=== PATIENT | female | born 1935 | race Caucasian/White ===

== ENCOUNTER 2018-11-11 11:15 | Emergency (ER) | payer MEDICARE ==
--- NOTE | 2018-11-11 12:12 | RAD ---
RIGHT HIP 2 VIEWS: Date: 11/11/18 HISTORY: Fall. Right hip pain. COMPARISON: None. FINDINGS: No acute displaced fracture or malalignment. Right SI joint and pubic symphysis are unremarkable. No femoral neck fracture. No intertrochanteric fracture. IMPRESSION: No acute abnormality. POS: [facility]
--- NOTE | 2018-11-11 12:18 | RAD ---
FRONTAL VIEW PELVIS: INDICATIONS: Fall with right pelvic pain. FINDINGS: No evidence of fracture or dislocation. The sacrum is partially obscured by overlying bowel content, limiting assessment. Scattered degenerative change is present. IMPRESSION: No discrete fracture. If there is a high level of clinical suspicion and inability to bear weight, consider followup with c ross-sectional imaging for further evaluation. POS: [facility]
== END 2018-11-11 12:37 | disposition home or self-care (01) ==
LOC: MADERS 11:15
DX: S60.511A Abrasion of right hand, initial encounter (principal); M25.551 Pain in right hip; E03.9 Hypothyroidism, unspecified; Z79.899 Other long term (current) drug therapy; W19.XXXA Unspecified fall, initial encounter
CPT/HCPCS: 72170

== ENCOUNTER 2022-09-16 16:12 | Emergency (ER) | payer MEDICARE ==
[2022-09-16] MEDS ORDERED: Morphine 2 MG/ML VIAL ONE (16:32)
[2022-09-16] MEDS ORDERED: Ondansetron PF 4 MG/2 ML Vial ONE (16:32)
[2022-09-16 16:41] LABS: #Basophils 0.1 thou/uL (0.0-0.2); #Eosinphils 0.1 thou/uL (0.0-0.7); #Lymphocytes 1.2 thou/uL (1.20-3.40); #Monocytes 0.5 thou/uL (0.11-0.59); #Neutrophils 3.2 thou/uL (1.40-6.50); %Basophils 1.6 % (0.0-1.0); %Eosinophils 1.7 % (0.0-10.0); %Monocytes 10.2 % (0.0-10.0); %Neutrophils 62.5 % (42.0-75.0); Hemoglobin 12.6 g/dL (12.0-16.0); Mean Corpuscular HGB CONC 32.8 g/dL (32.0-36.0); Mean Corpuscular Hemoglobin 30.7 pg (27.0-31.0); Mean Corpuscular Volume 93.6 fl (78.0-98.0); Mean Platelet Volume 7.1 fL (7.4-10.4); Platelet Count 247 thou/uL (130-400); RBC Distribution Width 12.2 % (11.5-14.5); Red Blood Cell (RBC) Count 4.11 mill/uL (4.20-5.40); White Blood Cell (WBC) Count 5.1 thou/uL (4.8-10.8)
[2022-09-16 16:50] LABS: Prothrombin Time 13.4 sec (12.0-14.7)
[2022-09-16 16:52] LABS: PTT 24.8 sec (22.9-36.1)
[2022-09-16 16:59] LABS: ALT (SGPT) 19 U/L (8-55); AST (SGOT) 26 U/L (5-34); Alkaline Phosphatase 70 U/L (40-110); Anion Gap 14 mmol/L (10-20); BUN (Urea Nitrogen) 21 mg/dL (9.8-20.1); Bilirubin, Total 0.5 mg/dL (0.2-1.2); Calc. Creatinine Clearance 0 mL/min (70-130); Calcium 9.3 mg/dL (7.8-10.44); Carbon Dioxide 29 mmol/L (23-31); Chloride 98 mmol/L (98-107); Estimated GFR 74; Globulin 2.5 g/dL (2.4-3.5); Glucose 116 mg/dL (83-110); Potassium 4.6 mmol/L (3.5-5.1); Protein, Total 6.5 g/dL (5.8-8.1); Sodium 136 mmol/L (136-145)
== END 2022-09-16 20:03 | disposition short-term general hospital (02) ==
LOC: MADERS 16:12
DX: S72.092A Other fracture of head and neck of left femur, initial encounter for closed fracture (principal); E03.9 Hypothyroidism, unspecified; Z79.899 Other long term (current) drug therapy; W07.XXXA Fall from chair, initial encounter
CPT/HCPCS: 80053; 85025; 85610; 85730; 96374; 96375; J2270; J2405

== ENCOUNTER 2022-09-22 13:48 | Inpatient (IN) | payer MEDICARE, OTHER ==
[2022-09-22 14:47] VITALS: BMI 14.2
[2022-09-22] MEDS ORDERED: Senokot S 8.6-50 MG TAB PO PRN (18:16)
[2022-09-22] MEDS ORDERED: Bisacodyl 5 MG TAB PO PRN (18:16)
[2022-09-22] MEDS ORDERED: Ondansetron ODT 4 MG TAB PO PRN (18:16)
[2022-09-22] MEDS ORDERED: traMADol HCl 50 MG TAB PO PRN (18:20)
[2022-09-22] MEDS ORDERED: Acetaminophen 500 MG TAB PO SCH (20:30)
[2022-09-22] MEDS: Aspirin 81 mg Enteric Coated Tablet PO SCH (20:46)
[2022-09-22] MEDS: Ascorbic Acid 500 mg Chewable Tablet PO SCH (20:47)
[2022-09-22] MEDS: Melatonin 3 MG TAB PO SCH (20:55)
[2022-09-22] MEDS: DOXEPIN HCL 10 MG PO SCH (20:56)
[2022-09-23] MEDS: Levothyroxine Sodium 50 MCG TAB PO SCH (05:07)
[2022-09-23] MEDS: Acetaminophen 500 MG TAB PO SCH ×4 (05:07→23:07)
[2022-09-23] MEDS: Lisinopril 5 MG TAB PO SCH (08:48)
[2022-09-23] MEDS: Aspirin 81 mg Enteric Coated Tablet PO SCH ×2 (08:48→20:53)
[2022-09-23] MEDS: Ferrous Sulfate 325 MG TAB PO SCH ×2 (08:48→17:04)
[2022-09-23] MEDS: Ascorbic Acid 500 mg Chewable Tablet PO SCH ×2 (08:48→20:53)
[2022-09-23] MEDS: Nystatin 500,000 UNITS/5 ML UDCUP SSW SCH ×3 (13:56→20:53)
[2022-09-23] MEDS: Melatonin 3 MG TAB PO SCH (20:53)
[2022-09-23] MEDS: DOXEPIN HCL 10 MG PO SCH (20:55)
[2022-09-24] MEDS: Levothyroxine Sodium 50 MCG TAB PO SCH (05:57)
[2022-09-24] MEDS: Acetaminophen 500 MG TAB PO SCH ×4 (05:57→23:32)
[2022-09-24] MEDS: Ferrous Sulfate 325 MG TAB PO SCH ×2 (08:25→17:29)
[2022-09-24] MEDS: Aspirin 81 mg Enteric Coated Tablet PO SCH ×2 (08:25→20:57)
[2022-09-24] MEDS: Ascorbic Acid 500 mg Chewable Tablet PO SCH ×2 (08:25→20:57)
[2022-09-24] MEDS: Lisinopril 5 MG TAB PO SCH (08:25)
[2022-09-24] MEDS: Nystatin 500,000 UNITS/5 ML UDCUP SSW SCH ×4 (08:25→20:57)
[2022-09-24] MEDS: Melatonin 3 MG TAB PO SCH (20:57)
[2022-09-24] MEDS: DOXEPIN HCL 10 MG PO SCH (20:58)
[2022-09-25] MEDS: Levothyroxine Sodium 50 MCG TAB PO SCH (05:18)
[2022-09-25] MEDS: Acetaminophen 500 MG TAB PO SCH ×4 (05:18→23:20)
[2022-09-25] MEDS: Aspirin 81 mg Enteric Coated Tablet PO SCH ×2 (08:09→21:10)
[2022-09-25] MEDS: Ferrous Sulfate 325 MG TAB PO SCH ×2 (08:09→16:53)
[2022-09-25] MEDS: Lisinopril 5 MG TAB PO SCH (08:09)
[2022-09-25] MEDS: Ascorbic Acid 500 mg Chewable Tablet PO SCH ×2 (08:09→21:10)
[2022-09-25] MEDS: Nystatin 500,000 UNITS/5 ML UDCUP SSW SCH ×4 (08:09→21:10)
[2022-09-25] MEDS: Melatonin 3 MG TAB PO SCH (21:10)
[2022-09-25] MEDS: traMADol HCl 50 MG TAB PO PRN (21:10)
[2022-09-25] MEDS: DOXEPIN HCL 10 MG PO SCH (21:12)
[2022-09-26] MEDS: Acetaminophen 500 MG TAB PO SCH ×3 (05:35→17:10)
[2022-09-26] MEDS: Levothyroxine Sodium 50 MCG TAB PO SCH (05:35)
[2022-09-26] MEDS: Nystatin 500,000 UNITS/5 ML UDCUP SSW SCH ×4 (08:18→22:07)
[2022-09-26] MEDS: Ascorbic Acid 500 mg Chewable Tablet PO SCH ×2 (08:18→22:07)
[2022-09-26] MEDS: Ferrous Sulfate 325 MG TAB PO SCH ×2 (08:18→17:10)
[2022-09-26] MEDS: Lisinopril 5 MG TAB PO SCH (08:18)
[2022-09-26] MEDS: Aspirin 81 mg Enteric Coated Tablet PO SCH ×2 (08:18→22:07)
[2022-09-26] MEDS: Melatonin 3 MG TAB PO SCH (22:07)
[2022-09-26] MEDS: DOXEPIN HCL 10 MG PO SCH (22:08)
[2022-09-26] MEDS: traMADol HCl 50 MG TAB PO PRN (22:12)
[2022-09-27] MEDS: Acetaminophen 500 MG TAB PO SCH ×4 (00:52→17:08)
[2022-09-27] MEDS: Levothyroxine Sodium 50 MCG TAB PO SCH (05:18)
[2022-09-27] MEDS: Nystatin 500,000 UNITS/5 ML UDCUP SSW SCH ×4 (08:30→21:35)
[2022-09-27] MEDS: Aspirin 81 mg Enteric Coated Tablet PO SCH ×2 (08:30→21:35)
[2022-09-27] MEDS: Ascorbic Acid 500 mg Chewable Tablet PO SCH ×2 (08:31→21:39)
[2022-09-27] MEDS: Ferrous Sulfate 325 MG TAB PO SCH ×2 (08:31→17:08)
[2022-09-27] MEDS: Lisinopril 5 MG TAB PO SCH (08:31)
[2022-09-27] MEDS: Melatonin 3 MG TAB PO SCH (21:35)
[2022-09-27] MEDS: traMADol HCl 50 MG TAB PO PRN (21:38)
[2022-09-27] MEDS: DOXEPIN HCL 10 MG PO SCH (21:41)
[2022-09-28] MEDS: Acetaminophen 500 MG TAB PO SCH ×5 (00:08→23:53)
[2022-09-28] MEDS: Levothyroxine Sodium 50 MCG TAB PO SCH (05:33)
[2022-09-28] MEDS: Ascorbic Acid 500 mg Chewable Tablet PO SCH ×2 (08:11→21:15)
[2022-09-28] MEDS: Lisinopril 5 MG TAB PO SCH (08:11)
[2022-09-28] MEDS: Ferrous Sulfate 325 MG TAB PO SCH ×2 (08:11→17:08)
[2022-09-28] MEDS: Aspirin 81 mg Enteric Coated Tablet PO SCH ×2 (08:12→21:17)
[2022-09-28] MEDS: Nystatin 500,000 UNITS/5 ML UDCUP SSW SCH ×4 (08:12→21:15)
[2022-09-28] MEDS: traMADol HCl 50 MG TAB PO PRN (21:16)
[2022-09-28] MEDS: Melatonin 3 MG TAB PO SCH (21:16)
[2022-09-28] MEDS: DOXEPIN HCL 10 MG PO SCH (21:18)
[2022-09-29] MEDS: Acetaminophen 500 MG TAB PO SCH ×3 (05:52→17:06)
[2022-09-29] MEDS: Levothyroxine Sodium 50 MCG TAB PO SCH (05:52)
[2022-09-29] MEDS: Ferrous Sulfate 325 MG TAB PO SCH ×2 (07:58→17:06)
[2022-09-29] MEDS: Ascorbic Acid 500 mg Chewable Tablet PO SCH ×2 (08:00→21:57)
[2022-09-29] MEDS: Lisinopril 5 MG TAB PO SCH (08:00)
[2022-09-29] MEDS: Aspirin 81 mg Enteric Coated Tablet PO SCH ×2 (08:00→21:58)
[2022-09-29] MEDS: Nystatin 500,000 UNITS/5 ML UDCUP SSW SCH ×4 (08:01→21:52)
[2022-09-29] MEDS: Melatonin 3 MG TAB PO SCH (21:53)
[2022-09-30] MEDS: Acetaminophen 500 MG TAB PO SCH ×4 (00:32→17:08)
[2022-09-30] MEDS: Levothyroxine Sodium 50 MCG TAB PO SCH (05:58)
[2022-09-30] MEDS: Aspirin 81 mg Enteric Coated Tablet PO SCH ×2 (08:30→20:35)
[2022-09-30] MEDS: Ferrous Sulfate 325 MG TAB PO SCH ×2 (08:30→17:07)
[2022-09-30] MEDS: Lisinopril 5 MG TAB PO SCH (08:31)
[2022-09-30] MEDS: Ascorbic Acid 500 mg Chewable Tablet PO SCH ×2 (08:31→20:35)
[2022-09-30] MEDS: Nystatin 500,000 UNITS/5 ML UDCUP SSW SCH ×4 (08:31→20:35)
[2022-09-30] MEDS: Melatonin 3 MG TAB PO SCH (20:35)
[2022-10-01] MEDS: Acetaminophen 500 MG TAB PO SCH ×5 (02:01→23:35)
[2022-10-01] MEDS: Levothyroxine Sodium 50 MCG TAB PO SCH (05:15)
[2022-10-01] MEDS: Aspirin 81 mg Enteric Coated Tablet PO SCH ×2 (08:07→21:08)
[2022-10-01] MEDS: Ascorbic Acid 500 mg Chewable Tablet PO SCH ×2 (08:07→21:08)
[2022-10-01] MEDS: Lisinopril 5 MG TAB PO SCH (08:08)
[2022-10-01] MEDS: Ferrous Sulfate 325 MG TAB PO SCH ×2 (08:08→17:06)
[2022-10-01] MEDS: Nystatin 500,000 UNITS/5 ML UDCUP SSW SCH ×4 (08:10→21:08)
[2022-10-01] MEDS: Melatonin 3 MG TAB PO SCH (21:08)
[2022-10-02] MEDS: Acetaminophen 500 MG TAB PO SCH ×4 (05:27→17:14)
[2022-10-02] MEDS: Levothyroxine Sodium 50 MCG TAB PO SCH (05:27)
[2022-10-02] MEDS: Lisinopril 5 MG TAB PO SCH (08:03)
[2022-10-02] MEDS: Aspirin 81 mg Enteric Coated Tablet PO SCH ×2 (08:03→21:20)
[2022-10-02] MEDS: Ascorbic Acid 500 mg Chewable Tablet PO SCH ×2 (08:04→21:19)
[2022-10-02] MEDS: Nystatin 500,000 UNITS/5 ML UDCUP SSW SCH ×5 (08:04→21:20)
[2022-10-02] MEDS: Ferrous Sulfate 325 MG TAB PO SCH ×2 (08:04→17:10)
[2022-10-02] MEDS ORDERED: Diphenoxylate HCl/Atropine Tablet PO PRN (13:49)
[2022-10-02] MEDS: Melatonin 3 MG TAB PO SCH (21:20)
[2022-10-03] MEDS: Acetaminophen 500 MG TAB PO SCH ×2 (00:13→05:55)
[2022-10-03] MEDS: Levothyroxine Sodium 50 MCG TAB PO SCH (05:55)
[2022-10-03 08:40] VITALS: BP 118/59; TEMP 97.2
[2022-10-03] MEDS: Aspirin 81 mg Enteric Coated Tablet PO SCH (09:59)
[2022-10-03] MEDS: Ferrous Sulfate 325 MG TAB PO SCH (09:59)
[2022-10-03] MEDS: Lisinopril 5 MG TAB PO SCH (09:59)
[2022-10-03] MEDS: Ascorbic Acid 500 mg Chewable Tablet PO SCH (09:59)
[2022-10-03] MEDS: Nystatin 500,000 UNITS/5 ML UDCUP SSW SCH (09:59)
== END 2022-10-03 13:45 | disposition hospice, home (50) | DRG 560 ==
LOC: MADMS 14:24
PROVIDERS: ADMIT Family Medicine; ATTEND Family Medicine
DX: S72.002D Fracture of unspecified part of neck of left femur, subsequent encounter for closed fracture with routine healing (principal); B37.0 Candidal stomatitis; F03.90 Unspecified dementia, unspecified severity, without behavioral disturbance, psychotic disturbance, mood disturbance, and anxiety; E03.9 Hypothyroidism, unspecified; Z66 Do not resuscitate; W19.XXXD Unspecified fall, subsequent encounter; R26.81 Unsteadiness on feet; Z98.890 Other specified postprocedural states; Z88.8 Allergy status to other drugs, medicaments and biological substances; Z88.2 Allergy status to sulfonamides; Z79.82 Long term (current) use of aspirin; Z79.899 Other long term (current) drug therapy
CPT/HCPCS: 71045; 87811